=== PATIENT | female | born 2000 | race Caucasian/White ===

== ENCOUNTER 2023-02-28 17:20 | Emergency (ER) | payer OTHER ==
[~2023-02-28] VITALS: Ht 167.6 cm; Wt 79.4 kg
[2023-02-28 17:28] VITALS: BP 122/68
--- NOTE | 2023-02-28 17:30 | NUR ---
23/F WALKED IN C/O LEFT THUMB PAIN AFTER FALLING 4 DAYS AGO. PT REPORTS TRIPPING AND FALLING 4 DAYS AGO AND LANDED ON HER HANDS. DENIES LOC OR INJURY TO HEAD. REPORTS THROBBING PAIN AND SWELLING TO LEFT THUMB. PMH: DENIES
[2023-02-28] MEDS ORDERED: ACETAMINOPHEN 325 MG TAB PO ONE (17:45)
[2023-02-28] MEDS ORDERED: IBUP-2213 PO (18:37)
== END 2023-02-28 18:45 | disposition home or self-care (01) ==
LOC: MED 17:20
DX: S63.602A Unspecified sprain of left thumb, initial encounter (principal); R03.0 Elevated blood-pressure reading, without diagnosis of hypertension; Z79.1 Long term (current) use of non-steroidal anti-inflammatories (NSAID); W01.0XXA Fall on same level from slipping, tripping and stumbling without subsequent striking against object, initial encounter; Y93.6A Activity, physical games generally associated with school recess, summer camp and children; Y92.39 Other specified sports and athletic area as the place of occurrence of the external cause; Y99.8 Other external cause status
CPT/HCPCS: 73140; 99283